=== PATIENT | male | born 1995 | race Hispanic/Latino ===

== ENCOUNTER 2023-11-09 01:29 | Emergency (ER) | payer SELFPAY ==
[2023-11-09] MEDS ORDERED: NA CHLORIDE 0.9% 1,000 ML ONE (01:44)
--- NOTE | 2023-11-09 02:29 | ER ---
Nurse's Notes [facility] Name: Shahram Gann Age: 27 yrs Sex: Male : 1995 Arrival Date: 11/09/2023 Time: 01:29 Bed 7 Private MD: Diagnosis: Alcohol abuse with intoxication Presentation: 11/08 01:35 Chief complaint: Patient states: I have been drinking since 1400 this afternoon. EMS bm8 states: called out for highly intoxicated individual that could not walk. Coronavirus screen: At this time, the client does not indicate any symptoms associated with coronavirus-19. Ebola Screen: Patient negative for fever greater than or equal to 101.5 degrees Fahrenheit, and additional compatible Ebola Virus Disease symptoms Patient denies exposure to infectious person. Patient denies travel to an Ebola-affected area in the 21 days before illness onset. No symptoms or risks identified at this time. Initial Sepsis Screen: Does the patient meet any 2 criteria? No. Patient's initial sepsis screen is negative. Does the patient have a suspected source of infection? No. Patient's initial sepsis screen is negative. Risk Assessment: Do you want to hurt yourself or someone else? Patient reports no desire to harm self or others. Onset of symptoms was November 08, 2023 at 14:00. 01:35 Method Of Arrival: EMS: [facility] bm8 01:35 Acuity: ANJELICA 3 bm8 01:41 Care prior to arrival: Medication(s) given: Normal saline infusion, 500 mL, IV bm8 initiated. 18 GA, in the left forearm. Triage Assessment: 01:37 General: Appears in no apparent distress. comfortable, Behavior is calm, cooperative, bm8 appropriate for age. Pain: Denies pain. EENT: No deficits noted. No signs and/or symptoms were reported regarding the EENT system. Neuro: No deficits noted. Level of Consciousness is awake, alert, obeys commands, Oriented to person, place, time, situation, Appropriate for age. Cardiovascular: No deficits noted. Capillary refill < 3 seconds Patient's skin is warm and dry. Respiratory: Airway is patent Trachea midline Respiratory effort is even, unlabored, Respiratory pattern is regular, symmetrical, Breath sounds are clear bilaterally. GI: No signs and/or symptoms were reported involving the gastrointestinal system. : No signs and/or symptoms were reported regarding the genitourinary system. Derm: No signs and/or symptoms reported regarding the dermatologic system. Musculoskeletal: No signs and/or symptoms reported regarding the musculoskeletal system. Historical: - Allergies: 01:37 No Known Allergies; bm8 - Home Meds: 01:37 None [Active]; bm8 - PMHx: 01:37 adhd; bm8 - PSHx: 01:37 None; bm8 - Immunization history:: Adult Immunizations unknown. - Infectious Disease History:: Denies. - Social history:: Smoking status: Patient reports the use of cigarette tobacco products, denies chronic smoking, but will smoke occasionally, Patient uses alcohol, street drugs, marijuana. - Family history:: not pertinent. Screenin:42 [facility] ED Fall Risk Assessment (Adult) History of falling in the last 3 months, bm8 including since admission No falls in past 3 months (0 pts) Confusion or Disorientation No (0 pts) Intoxicated or Sedated Yes (3 pts) Impaired Gait Yes (1 pt) Mobility Assist Device Used No (0 pt) Altered Elimination No (0 pt) Score/Fall Risk Level 3 or more points = High Risk Oriented to surroundings, Maintained a safe environment, Educated pt \T\ family on fall prevention, incl call for assistance when getting out of bed, Assessed \T\ reinforced patient's understanding of fall precautions, Provided non-skid footwear, Used ambulatory aids as needed (educated on \T\ assisted with), Used gait belt as appropriate Implemented a Fall Risk Plan of Care, Apply high fall risk patient identification: yellow non skid footwear/ fall signage. Abuse screen: Denies threats or abuse. Nutritional screening: No deficits noted. Tuberculosis screening: No symptoms or risk factors identified. Assessment: 02:15 Reassessment: Patient is alert, oriented x 3, equal unlabored respirations, skin jj7 warm/dry/pink. General: Appears. General: Appears in no apparent distress. comfortable, Behavior is calm, cooperative, appropriate for age. Pain: Denies pain. Vital Signs: 01:35 BP 130 / 76; Pulse 114; Resp 18; Temp 98.7; Pulse Ox 96% on R/A; Weight 61.23 kg; bm8 Height 5 ft. 4 in. ; Pain 0/10; 02:21 BP 118 / 80; Pulse 105; Resp 17; Temp 97.6; Pulse Ox 96% ; Pain 0/10; jj7 01:35 Body Mass Index 23.17 (61.23 kg, 162.56 cm) bm8 01:35 Pain Scale: Adult bm8 02:21 Pain Scale: Adult jj7 [place] Coma Score: 02:22 Eye Response: spontaneous(4). Motor Response: obeys commands(6). Verbal Response: sp4 oriented(5). Total: 15. ED Course: 01:31 Patient arrived in ED. jj7 01:35 Per Man MD is Attending Physician. sp4 01:35 Felix Haynes RN is Primary Nurse. bm8 01:37 Triage completed. bm8 01:37 Arm band placed on right wrist. bm8 01:42 Patient has correct armband on for positive identification. Bed in low position. Call bm8 light in reach. Side rails up X 1. Client placed on continuous cardiac and pulse oximetry monitoring. NIBP monitoring applied. Pulse ox on. NIBP on. Door closed. Noise minimized. Lights dimmed. Pillow given. Verbal reassurance given. Head of bed elevated. 01:42 No provider procedures requiring assistance completed. Maintain EMS IV. Dressing bm8 intact. Good blood return noted. Site clean \T\ dry. Gauge \T\ site: 18g lfa. Flushed with 10 mL NS. 02:21 IV discontinued, intact, bleeding controlled, No redness/swelling at site. Pressure jj7 dressing applied. Administered Medications: 01:36 CANCELLED (Physician Discretion): ns 0.45 % with kcl20 meq/l 1000 ml IV at 1000 bolus sp4 once 01:43 Drug: NS 0.9% IV 1000 ml IV at 1 bolus Per protocol; 1000 mL bolus Route: IV; Rate: 1 bm8 bolus; Site: left forearm; 02:24 Follow up: IV Status: Completed infusion jj7 Medication: 01:42 VIS not applicable for this client. bm8 Outcome: 02:21 Discharged to home ambulatory, with significant other, jj7 02:21 Condition: good 02:21 Discharge instructions given to patient, significant other, Instructed on discharge instructions, Demonstrated understanding of instructions, 02:21 Patient left the ED. jj7 02:28 Discharge ordered by . sp4 Signatures: Yanira Hall RN RN jj7 Per Man MD MD sp4 Felix Haynes RN RN bm8 Corrections: (The following items were deleted from the chart) 02:29 02:29 Patient left the ED. [email or web address] jj7
--- NOTE | 2023-11-09 02:29 | EDPHYS ---
Physician Documentation [facility] Name: Shahram Gann Age: 27 yrs Sex: Male : 1995 Arrival Date: 11/09/2023 Time: 01:29 Bed 7 Private MD: ED Physician Per Man HPI: 11/08 01:35 This 27 yrs old Male presents to ER via Unassigned with complaints of ETOH sp4 Abuse. 02:22 Patient is a very pleasant 27-year-old male who presents with alcohol intoxication. sp4 Apart from alcohol intoxication patient has no other complaints. EMS brought patient to the ER. Patient was reportedly found intoxicated outside of his apartment by the police.. Historical: - Allergies: 01:37 No Known Allergies; bm8 - Home Meds: 01:37 None [Active]; bm8 - PMHx: 01:37 adhd; bm8 - PSHx: 01:37 None; bm8 - Immunization history:: Adult Immunizations unknown. - Infectious Disease History:: Denies. - Social history:: Smoking status: Patient reports the use of cigarette tobacco products, denies chronic smoking, but will smoke occasionally, Patient uses alcohol, street drugs, marijuana. - Family history:: not pertinent. ROS: 02:22 Constitutional: Negative for fever, chills, and weight loss, positive for alcohol sp4 intoxication 02:22 All other systems are negative, Exam: 02:22 Constitutional: This is a well developed, well nourished patient who is awake, alert, sp4 and in no acute distress. Head/Face: Normocephalic, atraumatic. Eyes: Pupils equal round and reactive to light, extra-ocular motions intact. Lids and lashes normal. Conjunctiva and sclera are not injected. Cornea within normal limits. Periorbital areas with no swelling, redness, or edema. ENT: Nares patent. No nasal discharge, no septal abnormalities noted. Tympanic membranes are normal and external auditory canals are clear. Oropharynx with no redness, swelling, or masses, exudates, or evidence of obstruction, uvula midline. Mucous membranes moist. Neck: Trachea midline, no thyromegaly or masses palpated, and no cervical lymphadenopathy. Supple, full range of motion without nuchal rigidity, or vertebral point tenderness. Chest/axilla: Normal chest wall appearance and motion. Nontender with no deformity. No lesions are appreciated. Cardiovascular: Regular rate and rhythm with a normal S1 and S2. No gallops, murmurs, or rubs. Normal PMI, no JVD. No pulse deficits. Respiratory: Lungs have equal breath sounds bilaterally, clear to auscultation and percussion. No rales, rhonchi or wheezes noted. No increased work of breathing, no retractions or nasal flaring. Abdomen/GI: Soft, with normal bowel sounds. No distension or tympany. No guarding or rebound. No evidence of tenderness throughout. Back: No spinal tenderness. No costovertebral tenderness. Skin: Warm, dry with normal turgor. Normal color with no rashes, no lesions, and no evidence of cellulitis. MS/ Extremity: Pulses equal, no cyanosis. Neurovascular intact. Full, normal range of motion. Neuro: Awake and alert, GCS 15, oriented to person, place, Cranial nerves II-XII grossly intact. Motor strength 5/5 in all extremities. Sensory grossly intact. Alcohol intoxication limits exam but grossly no acute neurologic deficits Vital Signs: 01:35 BP 130 / 76; Pulse 114; Resp 18; Temp 98.7; Pulse Ox 96% on R/A; Weight 61.23 kg; bm8 Height 5 ft. 4 in. ; Pain 0/10; 02:21 BP 118 / 80; Pulse 105; Resp 17; Temp 97.6; Pulse Ox 96% ; Pain 0/10; jj7 01:35 Body Mass Index 23.17 (61.23 kg, 162.56 cm) bm8 01:35 Pain Scale: Adult bm8 02:21 Pain Scale: Adult jj7 [place] Coma Score: 02:22 Eye Response: spontaneous(4). Motor Response: obeys commands(6). Verbal Response: sp4 oriented(5). Total: 15. MDM: 01:36 Patient medically screened. sp4 06:26 Differential Diagnosis: electrolyte abnormality, alcohol intoxication, hypoglycemia, sp4 volume depletion. Data reviewed: vital signs, nurses notes, EMS record, old medical records. ED course: Stable for discharge home. Patient was picked up by his friend . Administered Medications: 01:36 CANCELLED (Physician Discretion): ns 0.45 % with kcl20 meq/l 1000 ml IV at 1000 bolus sp4 once 01:43 Drug: NS 0.9% IV 1000 ml IV at 1 bolus Per protocol; 1000 mL bolus Route: IV; Rate: 1 bm8 bolus; Site: left forearm; 02:24 Follow up: IV Status: Completed infusion jj7 Disposition: 06:35 Chart complete. sp4 Disposition Summary: 11/09/23 02:28 Discharge Ordered Notes: Location: Home sp4 Problem: new sp4 Symptoms: have improved sp4 Condition: Stable sp4 Diagnosis - Alcohol abuse with intoxication sp4 Followup: sp4 - With: Private Physician - When: As needed - Reason: Discharge Instructions: - Discharge Summary Sheet sp4 - Alcohol Intoxication sp4 Forms: - Patient Portal Instructions sp4 Signatures: Per Man MD MD sp4 Felix Haynes RN RN bm8 Yanira Hall RN jj7 Corrections: (The following items were deleted from the chart) 01:36 01:35 NS 0.45 % with KCl IV 20 mEq/L 1000 ml IV at 1000 bolus once ordered. sp4 sp4
[2023-11-09 02:37] VITALS: O2SAT 96
[2023-11-09 02:40] VITALS: BP 118/80; TEMP 97.6
== END 2023-11-09 02:29 | disposition home or self-care (01) ==
LOC: ER 01:29
DX: F10.129 Alcohol abuse with intoxication, unspecified (principal); F17.210 Nicotine dependence, cigarettes, uncomplicated
CPT/HCPCS: 96360; 99284; J7030